=== PATIENT | female | born 1975 | race Caucasian/White ===

== ENCOUNTER 2020-03-31 11:55 | Emergency (ER) | payer OTHER ==
[2020-03-31 12:03] VITALS: BP 117/83; PULSE 111; TEMP 98.1; BMI 36.8
[2020-03-31] MEDS ORDERED: KETOROLAC TROMETHAMINE 60 MG/2 ML VIAL IM ONE (13:03)
[2020-03-31] MEDS ORDERED: KETOROLAC TROMETHAMINE 60 MG/2 ML VIAL ONE (13:35)
== END 2020-03-31 14:00 | disposition home or self-care (01) ==
LOC: JER 11:55
PROC: 3E023GC Introduction of Other Therapeutic Substance into Muscle, Percutaneous Approach (ICD-10-PCS; principal; 2020-03-31)
DX: R07.89 Other chest pain (principal)
CPT/HCPCS: 93005; 93010; 96372; 99284-25

== ENCOUNTER 2021-02-26 03:42 | Emergency (ER) | payer OTHER ==
[2021-02-26] MEDS ORDERED: ACETAMINOPHEN 1000 MG/100 ML VIAL IVPB ONE (04:13)
[2021-02-26 04:33] VITALS: BP 136/89; PULSE 66; TEMP 98.6; BMI 29.9
[2021-02-26] MEDS ORDERED: ACETAMINOPHEN INJECTION 100 ML IVPB ONE (04:40)
[2021-02-26 05:24] LABS: BASO % 0.2 % (0-2.0); EOS % 0.8 % (0-4.5); HEMATOCRIT 39.4 % (32.4-45.2); HEMOGLOBIN 13.4 GM/dL (10.7-15.3); LYMPH % 16.6 % (8-40); MCH 29.6 pg (25.7-33.7); MCHC 33.9 g/dl (32.0-36.0); MEAN CELL VOLUME 87.4 fl (80-96); MEAN PLT VOLUME 9.2 fl (7.5-11.1); MONO % 5.3 % (3.8-10.2); NEUT % 77.1 % (42.8-82.8); PLATELET COUNT 350 10^3/uL (134-434); RBC 4.51 M/mm3 (3.60-5.2); RDW 16.9 % (11.6-15.6); WHITE BLOOD COUNT 11.2 K/mm3 (4.0-10.0)
[2021-02-26 05:27] LABS: EPI CELLS >36 /uL (0-25.1); HYALINE CASTS 9 /uL (0-3.1); URINE APPEARANCE CLOUDY; URINE BACTERIA 788 /uL (0-1359); URINE BILIRUBIN NEGATIVE (NEGATIVE); URINE COLOR YELLOW; URINE GLUCOSE (UA) NEGATIVE (NEGATIVE); URINE KETONE 3+ (NEGATIVE); URINE LEUK ESTERASE TRACE (NEGATIVE); URINE NITRITE NEGATIVE (NEGATIVE); URINE PROTEIN 1+ (NEGATIVE); URINE RBC 1432 /uL (0-23.9); URINE UROBILINOGEN 0.2 mg/dL (0.2-1.0); URINE WBC 51 /uL (0-25.8)
[2021-02-26 05:39] LABS: CHLORIDE 106 mmol/L (98-107); SODIUM 140 mmol/L (136-145)
[2021-02-26 05:42] LABS: ALBUMIN 4.1 g/dl (3.4-5.0); ANION GAP 6 MMOL/L (8-16); BLOOD UREA NITROGEN 15.4 mg/dL (7-18); CALCIUM 9.6 mg/dL (8.5-10.1); CO2 28 mmol/L (21-32); GLUCOSE,RANDOM 113 mg/dL (74-106); LIPASE 46 U/L (73-393)
[2021-02-26 05:45] LABS: CREATININE 0.6 mg/dL (0.55-1.3); SGPT/ALT 22 U/L (13-61)
[2021-02-26 05:46] LABS: SGOT/AST 18 U/L (15-37)
[2021-02-26 05:47] LABS: BILIRUBIN,TOTAL 0.3 mg/dL (0.2-1); TOT PROT 7.8 g/dl (6.4-8.2)
[2021-02-26 05:48] LABS: ALK PHOS 119 U/L (45-117)
[2021-02-26 06:15] LABS: HCG,QUALITATIVE URINE Negative
[2021-02-26] MEDS ORDERED: MAG HYDROX/AL HYDROX/SIMETH 30 ML UNIT-DOSE CUP PO ONE (07:34)
[2021-02-26] MEDS ORDERED: LIDOCAINE VISCOUS 2% ORAL/TOP 15 ML UNIT-DOSE CUP MM ONE (07:34)
[2021-02-26] MEDS ORDERED: FAMOTIDINE 10 MG TABLET PO ONE (07:34)
[2021-02-26] MEDS ORDERED: LIDOCAINE VISCOUS 2% ORAL/TOP 15 ML UNIT-DOSE CUP ONE (07:40)
[2021-02-26] MEDS ORDERED: MAG HYDROX/AL HYDROX/SIMETH 30 ML UNIT-DOSE CUP ONE (07:40)
[2021-02-26] MEDS ORDERED: FAMOTIDINE 20 MG TABLET ONE (07:40)
[2021-02-26 09:49] LABS: URINE CRYSTALS FEW /hpf
== END 2021-02-26 07:57 | disposition home or self-care (01) ==
LOC: JER 03:42
PROC: 3E033NZ Introduction of Analgesics, Hypnotics, Sedatives into Peripheral Vein, Percutaneous Approach (ICD-10-PCS; principal; 2021-02-26)
DX: R10.32 Left lower quadrant pain (principal)
CPT/HCPCS: 36415; 74177-TC; 80053; 81003; 83605; 83690; 84484; 84703; 85025; 87086; 93005; 93010; 96374; 99285-25; J0131